=== PATIENT | female | born 1960 | race Caucasian/White ===

== ENCOUNTER → 2018-01-21 01:41 | Outpatient (CLI) | payer MEDICARE, MEDICAID, SELFPAY ==
--- NOTE | 2018-01-21 14:16 | MERGE_ITS ---
*[facility]* *[facility]* [address] [place] [address] Date of study: 01/21/2018 Transthoracic Echocardiography M-mode, complete 2D, complete spectral Doppler, and color Doppler *STUDY CONCLUSIONS* Summary: 1. Left ventricle: Systolic function was hyperdynamic. The estimated ejection fraction was 65-70%. Diastolic parameters were normal. There was no evidence of elevated ventricular filling pressure by Doppler parameters. 2. Mitral valve: There was mild regurgitation. 3. Right ventricle: The cavity size was normal. Wall thickness was normal. Systolic function was normal. 4. Atrial septum: No defect or patent foramen ovale was identified. 5. Pulmonary arteries: Pulmonary systolic pressure was in the range of 20mm Hg to 30mm Hg. 6. Inferior vena cava: The vessel was patent and normal in size. The respirophasic diameter changes were in the normal range (greater than or equal to 50%), consistent with normal central venous pressure. *PATIENT PRESENTATION* Height: 152.4cm ((60in) ) S/D Pressure: 99 / 60 Weight: 71.7kg ((157.7lb) ) BSA: 1.77m^2 Test start time: 02:34 PM. Test stop time: 03:28 PM. PERFORMING Unknown PERFORMING [facility] RT Elen (Stephan)(CT), [facility] ORDERING Heather Wolfe REFERRING Heather Wolfe *PROCEDURE DATA* Procedure information: The patient was identified by two identifiers. This study was interpreted by [facility]. Pertinent images and digital data are archived for permanent storage and are available for subsequent review. No prior study was available for comparison. Study status: Routine. Transthoracic echocardiography. M-mode, complete 2D, complete spectral Doppler, and color Doppler. A Transthoracic Echocardiogram was performed. Scanning was performed from the parasternal, apical, subcostal, and suprasternal notch acoustic windows. Images were obtained using an [id number] cardiac ultrasound machine. Image quality was adequate. Study completion: The patient tolerated the procedure well. History: PMH: Syncope and collapse. HTN. *CARDIAC ANATOMY* Left ventricle: Systolic function was hyperdynamic. The estimated ejection fraction was 65-70%. The tissue Doppler parameters were normal. Diastolic parameters were normal. There was no evidence of elevated ventricular filling pressure by Doppler parameters. Aortic valve: Trileaflet. Doppler: There was no stenosis. There was no regurgitation. VTI ratio of LVOT to aortic valve: 0.93. Valve area (VTI): 2.7cm^2. Indexed valve area (VTI): 1.5cm^2/m^2. Peak velocity ratio of LVOT to aortic valve: 0.83. Valve area (Vmax): 2.4cm^2. Indexed valve area (Vmax): 1.4cm^2/m^2. Mean velocity ratio of LVOT to aortic valve: 0.91. Valve area (Vmean): 2.6cm^2. Indexed valve area (Vmean): 1.5cm^2/m^2. Mean gradient (S): 4.5mm Hg. Peak gradient (S): 9.2mm Hg. Aorta: Aortic root: The aortic root was normal in size. Ascending aorta: The ascending aorta was normal in size. Mitral valve: Doppler: There was no evidence for stenosis. There was mild regurgitation. Valve area by pressure half-time: 3.8cm^2. Indexed valve area by pressure half-time: 2.2cm^2/m^2. Peak gradient (D): 3.3mm Hg. Left atrium: The atrium was normal in size. Atrial septum: No defect or patent foramen ovale was identified. Right ventricle: The cavity size was normal. Wall thickness was normal. Systolic function was normal. Pulmonic valve: Doppler: There was no evidence for stenosis. There was no significant regurgitation. Tricuspid valve: Doppler: There was mild regurgitation. Pulmonary artery: Poorly visualized. Pulmonary systolic pressure was in the range of 20mm Hg to 30mm Hg. Right atrium: The atrium was normal in size. Pericardium: There was no pericardial effusion. Systemic veins: Inferior vena cava: Well visualized. The vessel was patent and normal in size. The respirophasic diameter changes were in the normal range (greater than or equal to 50%), consistent with normal central venous pressure. Baseline ECG: Normal sinus rhythm. Measurements Left ventricle Value Reference LV ID, ED, PLAX 4.1 cm 3.5 - 6.0 LV ID, ES, PLAX 2.4 cm 2.1 - 4.0 LV PW thickness, ED, PLAX 0.9 cm LV end-diastolic volume, 1-p A2C 33 ml LV ejection fraction, 1-p A2C 71 % LV end-diastolic volume, 1-p A4C 38 ml LV ejection fraction, 1-p A4C 67 % LV e', lateral 0.112 m/sec LV E/e', lateral 8 LV e', medial 0.086 m/sec LV E/e', medial 11 LV e', average 0.099 m/sec LV E/e', average 9 Ventricular septum Value Reference IVS thickness, ED, PLAX 1.0 cm LVOT Value Reference LVOT ID, A-P 1.9 cm LVOT area 2.9 cm^2 LVOT peak velocity, S 1.27 m/sec LVOT mean velocity, S 0.92 m/sec LVOT VTI, S 25.9 cm LVOT peak gradient, S 6.4 mm Hg LVOT mean gradient, S 3.7 mm Hg Stroke volume (SV), LVOT DP 75 ml Stroke index (SV/bsa), LVOT DP 42 ml/m^2 Aortic valve Value Reference Aortic valve peak velocity, S 1.5 m/sec Aortic valve mean velocity, S 1.01 m/sec Aortic valve VTI, S 27.8 cm Aortic mean gradient, S 4.5 mm Hg Aortic peak gradient, S 9.2 mm Hg VTI ratio, LVOT/AV 0.93 Aortic valve area, VTI 2.7 cm^2 Velocity ratio, peak, LVOT/AV 0.83 Aortic valve area, peak velocity 2.4 cm^2 Velocity ratio, mean, LVOT/AV 0.91 Aortic valve area, mean velocity 2.6 cm^2 Aortic valve area/bsa, mean velocity 1.5 cm^2/m^2 Aorta Value Reference Aortic root ID, ED 3.0 cm Ascending aorta ID, A-P, S 2.9 cm RVOT Value Reference RVOT VTI, S 21.1 cm Left atrium Value Reference LA ID, A-P, ES 3.3 cm LA ID/bsa, A-P 1.8 cm/m^2 <=2.2 LA area, ES, A4C 14.6 cm^2 8.8 - 23.4 LA volume/bsa, ES, 1-p A4C 23 ml/m^2 LA/aortic root ratio 1.09 Mitral valve Value Reference Mitral E-wave peak velocity 0.91 m/sec Mitral A-wave peak velocity 0.88 m/sec Mitral deceleration time 198 ms 150 - 230 Mitral pressure half-time 57 ms Mitral peak gradient, D 3.3 mm Hg Mitral E/A ratio, peak 1.03 Mitral valve area, PHT, DP 3.8 cm^2 Pulmonary veins Value Reference Pulmonary vein peak velocity, S 0.68 m/sec Pulmonary vein peak velocity, D 0.68 m/sec Pulmonary vein velocity ratio, peak, 1.01 S/D Pulmonary vein A-wave reversal peak 0.41 m/sec velocity Tricuspid valve Value Reference Tricuspid regurg peak velocity 2.4 m/sec Tricuspid peak RV-RA gradient 23.9 mm Hg Right atrium Value Reference RA area, ES, A4C 11.4 cm^2 8.3 - 19.5 Legend: (L) and (H) mayelin values outside specified reference range. I have personally reviewed the images and have reviewed and edited the reported findings. Electronically signed by Yifan العراقي MD 01/21/2018 16:41
== END ==
PROVIDERS: PCP Nurse Practitioner; Visit Provider Nurse Practitioner
DX: R55 Syncope and collapse (principal); I10 Essential (primary) hypertension; I05.1 Rheumatic mitral insufficiency
CPT/HCPCS: 93306

== ENCOUNTER → 2018-01-23 00:15 | Outpatient (CLI) | payer MEDICARE, MEDICAID, SELFPAY ==
--- NOTE | 2018-01-23 09:30 | MERGEMPI_ITS ---
*[facility]* [address] [place] [address] Myocardial Perfusion Imaging - SPECT Regadenoson Date of study: 01/23/2018 (Report amended ) *PATIENT PRESENTATION* Height: 152.4cm (60in) Blood Pressure: Weight: 72.7kg (160lb) BSA: 1.78m^2 Referring physician: Yifan العراقي MD Ordering physician: Heather Wolfe Impressions: - Study suggests small myocardial ischemia, in the territory of the right coronary or left anterior descending arteries. - Low risk of cardiac events. Summary: 1. Myocardial perfusion imaging: There is a small sized, mildly intense, fully reversible defect involving the apical inferior and apical wall(s). This suggests small ischemia in the distribution of right coronary or left anterior descending artery. 2. The calculated left ventricular ejection fraction after stress: 70%. LV global systolic function is normal. No left ventricular regional motion abnormality. 3. Stress ECG conclusions: The stress ECG is negative. Recommendations: Medical management and risk factor modification is recommended. History: REASON FOR VISIT: PATIENT REPORTS INTERMITTENT DIZZINESS AND RECENT SHARP CHEST DISCOMFORT WITH RADIATION TO LEFT ARM. NO ASSOCIATED SYMPTOMS WERE REPORTED. CHEST DISCOMFORT OCCURED AT REST, LASTED ABOUT TEN MINUTES, AND RESOLVED WITHOUT INTERVENTION. SHE ALSO REPORTS PASSING OUT 8 TIMES WITHOUT WARNING. HAS HAD NO INTERVENTION REGARDING THIS PROBLEM. PAST MEDICAL HISTORY: RESTLESS LEG SYNDROME, DIVERTICULOSIS, FIBROMYALGIA, DEPRESSION, ANXIETY, HYPERTENSION, HYPERCHOLESTEROLEMIA, GASTROESOPHAGEAL REFLUX DISEASE, DEGENERATIVE JOINT DISEASE, CHRONIC KNEE PAIN. FAMILY HISTORY: MOTHER (HYPERTENSION AND HYPERLIPIDEMIA). SMOKING STATUS: FORMER SMOKER, QUIT IN 2013. EXERCISE ROUTINE: NONE. Risk factors: Cholesterol: 156mg/dl. HDL: 54mg/dl. LDL: 91mg/dl. Triglycerides: 129mg/dl. ALLERGIES: ACETAMINOPHEN, ADHESIVE, ASPIRIN, AZITHROMYCIN, CODEINE, LAMOTRIGINE, MEPERIDINE HCL, MORPHINE, OXYCODONE HCL, ROFECOXIB. MEDICATIONS: AMLODIPINE BESYLATE 2.5MG, DAILY. ASCORBIC ACID 100MG, DAILY. CLONAZEPAM 0.5MG PRN & 1MG HS. CYANOCOBALAMIN 1000MG, DAILY. CYCLOBENZAPRINE HCL 10MG, PRN. DIPHENHYDRAMINE HCL 25MG, BID. DULOXETINE HCL 60MG, BID. GARLIC 1 TAB, DAILY. HYDROCODONE/IBUPROFEN 10MG-200MG, PRN. LISINOPRIL 40MG, DAILY. LOVASTATIN 80MG DAILY. MIRTAZAPINE 15MG, DAILY. OMEGA-3/DHA/EPA/FISH OIL 1 TAB, DAILY. OMEPRAZOLE 40MG DAILY. PRAZOSIN HCL 1MG, HS. PYRIDOXINE HCL 100MG, DAILY. THIAMINE MONONITRATE 100MG, DAILY. VITAMIN D 1000UNITS, DAILY. Imaging Technique: Protocol: Regadenoson. Acquisition: Gated SPECT; 1 day - rest/stress. The patient was imaged in the supine position. Attenuation correction used. Isotope administration: - Rest. Tc[99m]-sestamibi. Dose: 10.2mCi. Injection time: 11:45 AM. Injection to stress time: 00:45. - Stress. Tc[99m]-sestamibi. Dose: 31.5mCi. Injection time: 01:00 PM. 1-2 min before end of exercise Baseline ECG: LAST EKG 01/03/18- REPORTED ATRIAL RHYTHM, POOR QUALITY TRACING. TODAY'S EKG-SINUS RHYTHM, HR 72. Normal ECG. Stress protocol: +--------+--+ + + !Stage !HR!BP (mmHg) !Comments ! +--------+--+ + + !Baseline!72!142/88 (106)! ! +--------+--+ + + !1 min !96!138/80 (99) !Inject Regadenoson.! +--------+--+ + + !3 min !92!140/85 (103)! ! +--------+--+ + + !6 min !85!140/78 (99) ! ! +--------+--+ + + * Stress results: The rate-pressure product for the peak heart rate and blood pressure was 98363te Hg/min. Stress ECG: LEXISCAN TESTING ENDED IN 6 MINS VS RETURNED TO BASELINE. MAX HR WAS 99, WITH A NORMAL BLOOD PRESSURE RESPONSE. ECTOPY: NONE SEEN, ANGINA: 5/10 LEFT SIDED CHEST PRESSURE REPORTED AT 2 MISN, 30 SECS OF TESTING. THIS DECREASED TO 3/10 IN MINUTE 3, AND 0/10 IN MINUTE 5. ISCHEMIA: NO ISCHEMIC CHANGES NOTED. The stress ECG is negative. Myocardial perfusion: Imaging information: gated. Left ventricular size is normal. There is a small sized, mildly intense, fully reversible defect involving the apical inferior and apical wall(s). This suggests small ischemia in the distribution of right coronary or left anterior descending artery. Ventricular Function (Wall Motion): The calculated left ventricular ejection fraction after stress: 70%. LV global systolic function is normal. No left ventricular regional motion abnormality. Study data: John Mathew MD supervised and was readily available during the procedure. This study was interpreted by [facility]. Study status: Routine. Consent: The risks, benefits, and alternatives to the procedure were explained to the patient and informed consent was obtained. Procedure: Initial setup. A baseline ECG was recorded. Surface ECG leads and manual cuff blood pressure measurements were monitored. Heart sounds: Normal. Lung sounds: Normal. Regadenoson stress test. Stress testing was performed, with regadenoson by intravenous bolus, for a total dose of 0.4mgover 10.00sec, followed by a 5ml saline flush. The infusion was terminated due to per protocol. The patient was unable to exercise due to deconditioning and or frailty. Study completion: All catheters inserted during the procedure were removed. The patient tolerated the procedure well and was discharged from the lab. Discharge: The patient left the laboratory in stable condition. Birthdate: Patient birthdate: 1960. Sex: Gender: female. Study date: Study date: 01/23/2018. Study time: 09:30 AM. Signature Documentation: - The imaging portion of this study was interpreted by Nuclear Maintenance Specialist John Mathew MD. - The imaging portion of this study was interpreted by Nuclear Radiologist Victor Hugo Gold MD. - The Stress ECG portion of this study was interpreted by John Mathew MD. Electronically signed by John Mathew 01/23/2018 14:11
[2018-01-23] MEDS: Regadenoson 0.4 MG/5 ML SYR IVP (13:14)
== END ==
PROVIDERS: PCP Nurse Practitioner; Visit Provider Nurse Practitioner
DX: R07.89 Other chest pain (principal); R42 Dizziness and giddiness; I10 Essential (primary) hypertension; E78.5 Hyperlipidemia, unspecified; I25.9 Chronic ischemic heart disease, unspecified; Z87.891 Personal history of nicotine dependence
CPT/HCPCS: 78452; 93016 ×2; 93017; 93018 ×2; J2785

== ENCOUNTER → 2018-01-28 09:30 | Outpatient (CLI) | payer MEDICARE, MEDICAID, SELFPAY | PROVIDERS: PCP Nurse Practitioner; Visit Provider Internal Medicine Interventional Cardiology | DX: R55 Syncope and collapse (principal); I10 Essential (primary) hypertension | CPT/HCPCS: 0298T ==

== ENCOUNTER → 2018-01-30 11:47 | Outpatient (CLI) | payer MEDICARE, MEDICAID, SELFPAY ==
[2018-01-30 12:31] LABS: Abs Immature Grans 0.01 k/cumm (0.0-0.09); Absolute Basophil Count 0.02 k/cumm (0.0-0.2); Absolute Eosinophil Count 0.22 k/cumm (0.0-0.7); Absolute Monocyte Count 0.38 k/cumm (0.11-0.7); Absolute Neutrophil Count 4.93 k/cumm (1.2-6.7); Basophils % 0.2; Eosinophils % 2.6; HGB 13.8 g/dL (12.0-15.5); Immature Grans % 0.1; Lymphocytes % 34.3; Mean Corp. HGB Concentration 32.9 g/dL (32.0-36.0); Mean Corpuscular Hemoglobin 29.6 pg (27.0-33.0); Mean Corpuscular Volume 89.9 fL (80-95); Mean Platelet Volume 10.2 fL (8.0-11.0); Monocytes % 4.5; Neutrophils % 58.3; Platelet Count 216 x1000/uL (130-400); RBC 4.67 m/cumm (4.00-5.20); RBC Distribution Width 16.2 % (11.7-14.6); White Blood Cell Count 8.46 k/cumm (4.4-10.8)
[2018-01-30 13:51] LABS: ALT 32 U/L (12-78); AST 19 U/L (15-37); Albumin 3.3 g/dL (3.4-5.0); Alkaline Phosphatase 90 U/L (46-116); Anion Gap 9.7 mmol/L (3-11); BUN 17 mg/dL (7-18); Bilirubin, Total 0.2 mg/dL (0.2-1.0); CO2 24.3 mmol/L (21.0-32.0); CREATININE 0.92 mg/dL (0.55-1.02); Calcium 8.6 mg/dL (8.5-10.1); Chloride 102 mmol/L (98-107); Cholesterol 155 mg/dL (50-200); Glucose 95 mg/dL (70-100); HDL Cholesterol 44 mg/dL (40-60); LDL CHOLESTEROL 100 mg/dL (<100); Magnesium 1.7 mg/dL (1.8-2.4); Potassium 4.3 mmol/L (3.5-5.1); Sodium 136 mmol/L (136-145); TSH (W/Ref FT4) 2.72 uIU/mL (0.358-3.74); Triglyceride 95 mg/dL (30-150)
[2018-01-31 11:30] LABS: Rheumatoid Factor <8 IU/mL (<12.5)
[2018-01-31 14:40] LABS: Lyme Ab w Rflx to Lyme Confirm Negative
[2018-01-31 15:36] LABS: ANA Interpretation Negative (NEGAT)
[2018-01-31 21:39] LABS: Anaplasma phagocytophilum Negative (Negative); B. miyamotoi PCR Negative (Negative); Babesia divergens/MO-1 Negative (Negative); Babesia duncani Negative (Negative); Babesia microti Negative (Negative); Ehrlichia chaffeensis Negative (Negative); Ehrlichia ewingii/canis Negative (Negative); Ehrlichia muris eauclairensis Negative (Negative)
== END ==
PROVIDERS: PCP Nurse Practitioner; Visit Provider Nurse Practitioner
DX: I10 Essential (primary) hypertension (principal); R55 Syncope and collapse; M25.50 Pain in unspecified joint; M25.60 Stiffness of unspecified joint, not elsewhere classified; R25.2 Cramp and spasm
CPT/HCPCS: 36415; 80053; 80061; 83721; 83735; 84443; 85025; 86038; 86431; 86618; 87798

== ENCOUNTER 2018-02-28 16:31 | Outpatient (REF) | payer MEDICARE, MEDICAID, SELFPAY ==
[2018-03-04 14:56] LABS: Amphetamine Negative ng/mL (Cutoff: 25); MDA (Ecstasy Metabolite) Negative ng/mL (Cutoff: 25); Methamphetamine Negative ng/mL (Cutoff: 25); Phentermine Negative ng/mL (Cutoff: 25); Pseudoephedrine/Ephedrine Negative ng/mL (Cutoff: 25)
== END 2018-02-28 16:51 ==
LOC: LBN 16:31
PROVIDERS: PCP Nurse Practitioner; Visit Provider Nurse Practitioner
DX: R55 Syncope and collapse (principal); G89.4 Chronic pain syndrome; M79.7 Fibromyalgia
CPT/HCPCS: 80324

== ENCOUNTER 2018-03-06 13:08 | Outpatient (CLI) | payer MEDICARE, MEDICAID, SELFPAY ==
--- NOTE | 2018-03-06 13:11 | DI.CT_ITS ---
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 There is no evidence of an intra or extra axial hemorrhage, edema or mass and nothing to suggest a territorial infarct. The mcgregor/white matter differentiation is well maintained. The ventricles are unremarkable. There is nothing to suggest a skull fracture. The paranasal sinuses are intact. There is no mastoid effusion. SUMMARY: No acute abnormality is demonstrated. The noncontrast enhanced examination is within normal limits. If there is further strong specific clinical question regarding the status of this patient then correlation with an MRI could be considered.
== END 2018-03-06 13:28 ==
PROVIDERS: PCP Nurse Practitioner; Visit Provider Nurse Practitioner
DX: R55 Syncope and collapse (principal); Z86.73 Personal history of transient ischemic attack (TIA), and cerebral infarction without residual deficits
CPT/HCPCS: 70450

== ENCOUNTER 2018-03-18 14:17 | Outpatient (CLI) | payer MEDICARE, MEDICAID, SELFPAY ==
[2018-03-18 15:55] LABS: D-Dimer 1206 ng/mlFEU (<500)
== END 2018-03-18 14:37 ==
PROVIDERS: PCP Nurse Practitioner; Visit Provider Nurse Practitioner
DX: R79.89 Other specified abnormal findings of blood chemistry (principal)
CPT/HCPCS: 36415; 85379

== ENCOUNTER → 2018-03-21 09:38 | Outpatient (BNVA) | payer MEDICARE, MEDICAID, SELFPAY | PROVIDERS: Visit Provider Internal Medicine Cardiovascular Disease | DX: I10 Essential (primary) hypertension (principal); R55 Syncope and collapse; R07.9 Chest pain, unspecified; R94.39 Abnormal result of other cardiovascular function study; R60.0 Localized edema | CPT/HCPCS: 99204; 99215 ==

== ENCOUNTER → 2018-04-02 12:59 | Outpatient (BNVA) | payer MEDICARE, MEDICAID, SELFPAY | PROVIDERS: PCP Nurse Practitioner; Visit Provider Psychiatry & Neurology Neurology | DX: R55 Syncope and collapse (principal); I10 Essential (primary) hypertension | CPT/HCPCS: 99204; 99215 ==

== ENCOUNTER 2018-09-24 19:42 | Outpatient (REF) | payer MEDICARE, MEDICAID, SELFPAY ==
[2018-09-27 09:53] LABS: Amphetamine Negative ng/mL (Cutoff: 25); Amphetamines Interpretation Negative.; MDA (Ecstasy Metabolite) Negative ng/mL (Cutoff: 25); MDMA (Ecstasy) Negative ng/mL (Cutoff: 25); Methamphetamine Negative ng/mL (Cutoff: 25); Phentermine Negative ng/mL (Cutoff: 25); Pseudoephedrine/Ephedrine Negative ng/mL (Cutoff: 25)
[2018-09-28 13:17] LABS: Codeine Negative ng/mL (Cutoff: 25); Dihydrocodeine 213 ng/mL (Cutoff: 25); Hydrocodone 3799 ng/mL (Cutoff: 25); Hydromorphone 325 ng/mL (Cutoff: 25); Morphine Negative ng/mL (Cutoff: 25); Naloxone Negative ng/mL (Cutoff: 25); Norhydrocodone 5601 ng/mL (Cutoff: 25); Noroxycodone Negative ng/mL (Cutoff: 25); Noroxymorphone Negative ng/mL (Cutoff: 25); Opiates Interpretation Positive.
[2018-10-01 14:54] LABS: Propoxyphene (Darvon) Negative
== END 2018-09-24 20:02 ==
LOC: LBN 19:42
PROVIDERS: PCP Nurse Practitioner; Visit Provider Nurse Practitioner
DX: F11.90 Opioid use, unspecified, uncomplicated (principal); G89.4 Chronic pain syndrome; R89.2 Abnormal level of other drugs, medicaments and biological substances in specimens from other organs, systems and tissues
CPT/HCPCS: 80324; 80361; 82542

== ENCOUNTER 2018-09-25 00:29 | Outpatient (CLI) | payer MEDICARE, MEDICAID, SELFPAY ==
--- NOTE | 2018-09-25 16:18 | DI.MAMMO_ITS ---
SYMPTOM/DIAGNOSIS: SCREENING, Z12.31, FAMILY H/O BREAST CA MAMMOGRAMS: Mammograms were interpreted according to the usual protocol including computer analysis with CAD system, tomosynthesis and C view imaging. The breasts are of moderate density with fairly symmetrical distribution of fibroglandular tissue. No dominant mass or clumped microcalcification is identified in either breast. Current examination is compared with previous examinations including 01/2015 and there has been no gross interval change in appearance in comparison with the previous studies. CONCLUSION: No specific evidence of malignancy at this time. Routine screening examinations are suggested at yearly intervals due to the family history of breast carcinoma. Category 1. Breast density,category B. MQSA ASSESSMENT OF FINDINGS: Negative. Category 1. Patient will receive a letter notifying them of these results. BI-RADS category B. There are scattered areas of fibroglandular density.
== END 2018-09-25 00:49 ==
PROVIDERS: PCP Nurse Practitioner; Visit Provider Nurse Practitioner
DX: Z12.31 Encounter for screening mammogram for malignant neoplasm of breast (principal); Z80.3 Family history of malignant neoplasm of breast
CPT/HCPCS: 77063; 77067

== ENCOUNTER 2018-12-17 18:25 | Outpatient (REF) | payer MEDICARE, MEDICAID, SELFPAY ==
[2018-12-20 09:25] LABS: Codeine Negative ng/mL (Cutoff: 25); Dihydrocodeine 390 ng/mL (Cutoff: 25); Hydrocodone 2131 ng/mL (Cutoff: 25); Hydromorphone 329 ng/mL (Cutoff: 25); Morphine Negative ng/mL (Cutoff: 25); Naloxone Negative ng/mL (Cutoff: 25); Norhydrocodone 3449 ng/mL (Cutoff: 25); Noroxycodone Negative ng/mL (Cutoff: 25); Noroxymorphone Negative ng/mL (Cutoff: 25); Opiates Interpretation Positive.
== END 2018-12-17 18:45 ==
LOC: LBN 18:25
PROVIDERS: PCP Nurse Practitioner; Visit Provider Nurse Practitioner
DX: G89.4 Chronic pain syndrome (principal); R82.90 Unspecified abnormal findings in urine; F11.90 Opioid use, unspecified, uncomplicated
CPT/HCPCS: 80361

== ENCOUNTER 2020-12-08 01:43 | Outpatient (CLI) | payer MEDICARE, MEDICAID, SELFPAY ==
--- NOTE | 2020-12-08 | DI.MAMMO_ITS ---
Exam(s) MAMMO SCREENING EXAM: MAMMO SCREENING CLINICAL HISTORY: SCREENING, Z12.39. TECHNIQUE: Bilateral full field digital CC and MLO mammographic images were obtained with 3D tomosyn thesis and utilizing computer aided detection (CAD). COMPARISON: Prior mammograms dating back to 2012, the most recent being September 2018. FINDINGS: There are no CAD designations There are no new spiculated masses nor malignant appearing microcalcification groups. There is no significant architectural distortion nor skin thickening-retraction. IMPRESSION: No radiographic evidence of malignancy. BI-RADS Category 1 - Negative Breast Density - Category B - Scattered areas of fibroglandular density Breast density Category C or D implies that the patient has dense breast tissue. Dense breast tissue can make it harder to find cancer on a mammogram. Dense breast tissue is also associated with an incr eased risk of breast cancer. This information about the result of the mammogram report was provided to the patient to raise their awareness. Use this report when you speak with the patient about their risks for breast cancer, which includes their family history. At that time, you may recommend additional screening tests (Ultrasoun d or MRI) as these tests may add significant information. A negative radiographic report should not delay biopsy if a dominant or clinically suspicious mass is present. Up to ten percent of cancers are not identified on mammography. A negative report may reinforce clinical impression. Adenosis and dense breasts may obscure an underlying neoplasm. False positive reports average 6 to 10%. Patient will receive a letter notifying them of these results.
== END 2020-12-08 02:03 ==
PROVIDERS: PCP Nurse Practitioner; Visit Provider Nurse Practitioner
DX: Z12.31 Encounter for screening mammogram for malignant neoplasm of breast (principal); R92.8 Other abnormal and inconclusive findings on diagnostic imaging of breast
CPT/HCPCS: 77063; 77067

== ENCOUNTER 2021-08-01 08:44 | Outpatient (CLI) | payer MEDICARE, MEDICAID, SELFPAY | END 2021-08-01 08:45 | disposition home or self-care (01) | LOC: DI.CARD 08:49 | PROVIDERS: PCP Nurse Practitioner; Visit Provider Internal Medicine Cardiovascular Disease | DX: R69 Illness, unspecified (principal) | CPT/HCPCS: 93010 ==

== ENCOUNTER 2021-09-06 11:18 | Outpatient (CLI) | payer MEDICARE, MEDICAID, SELFPAY ==
--- NOTE | 2021-09-06 11:15 | RT.EKG_ITS ---
APPROVED REPORT Exam: Resting ECG Reason for Exam: NPW Baseline needed Patient Location: O HR:86 bpm ECG Measurements Heart Rate 86 AXIS NV 125 P 58 QRSd 80 QRS 29 QT 346 T 46 QTc 414 Conclusion Sinus rhythm...normal P axis, V-rate 50- 99 Low voltage, precordial leads...precordial leads <1.0mV Otherwise normal
== END 2021-09-06 11:19 | disposition home or self-care (01) ==
LOC: DI.CARD 11:23
PROVIDERS: PCP Nurse Practitioner; Referring Provider Nurse Practitioner; Visit Provider Internal Medicine Cardiovascular Disease
DX: I10 Essential (primary) hypertension (principal)
CPT/HCPCS: 93010

== ENCOUNTER → 2021-09-06 11:18 | Outpatient (BNVA) | payer MEDICARE, MEDICAID, SELFPAY | PROVIDERS: PCP Nurse Practitioner; Referring Provider Nurse Practitioner; Visit Provider Internal Medicine Cardiovascular Disease | DX: M17.0 Bilateral primary osteoarthritis of knee (principal); I10 Essential (primary) hypertension | CPT/HCPCS: 93005; 99203 ==

== ENCOUNTER 2021-09-27 14:17 | Outpatient (CLI) | payer MEDICARE, MEDICAID, SELFPAY | END 2021-09-27 14:18 | disposition home or self-care (01) | LOC: DI.KIM 14:18 | PROVIDERS: PCP Nurse Practitioner; Visit Provider Nurse Practitioner | DX: R69 Illness, unspecified (principal) | CPT/HCPCS: 93010 ==

== ENCOUNTER 2022-11-02 13:00 | Outpatient (REF) | payer MEDICARE, MEDICAID, SELFPAY ==
[2022-11-02 14:59] LABS: HCT 43.8 % (36.0-46.0); HGB 14.5 g/dL (11.2-15.7); MCH 28.2 pg (27.0-33.0); MCHC 33.1 % (32.0-36.0); MCV 85 fL (80-95); MPV 10.7 fL (8.0-11.0); Platelet Count 206 10^3/uL (130-400); RBC 5.14 10^6/uL (3.93-5.22); RDW 15.8 % (11.7-14.6); RDW-SD 48.7 fL; WBC 9.32 10^3/uL (4.4-10.8)
[2022-11-02 15:30] LABS: ALT 73 U/L (14-59); AST 54 U/L (15-37); Albumin 3.6 g/dL (3.4-5.0); Alkaline Phosphatase 95 U/L (46-116); Anion Gap 7.5 mmol/L (3-11); BUN 16 mg/dL (7-18); Bilirubin, Total 0.3 mg/dL (0.2-1.0); CO2 27.5 mmol/L (21.0-32.0); CREATININE 0.9 mg/dL (0.55-1.02); Calcium 9.3 mg/dL (8.5-10.1); Calculated LDL 121 mg/dL (<100); Chloride 105 mmol/L (98-107); Cholesterol 200 mg/dL (<200); Estimated GFR 72.28 (mL/min/1.73m2); Glucose 123 mg/dL (74-106); HDL Cholesterol 47 mg/dL (40-60); Potassium 4.1 mmol/L (3.5-5.1); Sodium 140 mmol/L (136-145); Total Protein 7.4 g/dL (6.4-8.2); Triglyceride 162 mg/dL (<150)
[2022-11-02 15:53] LABS: COMMENT (LAB VIEW ONLY) 335.82 mg/dL; Microalb ug/mg Crea 14.5 ug/mg Cr
== END 2022-11-02 13:01 | disposition home or self-care (01) ==
LOC: LBN 13:00
PROVIDERS: PCP Nurse Practitioner; Visit Provider Nurse Practitioner
DX: I10 Essential (primary) hypertension (principal); E78.5 Hyperlipidemia, unspecified; E11.9 Type 2 diabetes mellitus without complications
CPT/HCPCS: 80053; 80061; 85027; 82043; 82570

== ENCOUNTER → 2023-10-18 00:09 | Outpatient (CLI) | payer MEDICARE, MEDICAID, SELFPAY ==
--- NOTE | 2023-10-18 | DI.CTLCSR_ITS ---
Exam(s) CT CHEST LUNG CANCER SCREEN EXAM: CT CHEST LUNG CANCER SCREEN CLINICAL HISTORY: F17.210 Nicotine dependence. Screening for lung cancer TECHNIQUE: Imaging Protocol: Axial computed tomography images with coronal and sagittal reformatted images were created and reviewed COMPARISON: CT RENAL COLIC WO CONTRAST from 07/03/2007 CT ABD PELVIS WITH CONTRAST from 07/10/2008 CT RENAL COLIC WO CONTRAST from 06/15/2010 FINDINGS: Tracheobronchial tree: Patent where visualized. Pulmonary parenchyma: No consolidation or dominant measurable mass. No architectural distortion. Lung Nodules: There is a 3 mm nodule in the right lower lobe (series 3, image 273). Mediastinum and Roro: No dominant adenopathy or fluid collection. The esophagus is unremarkable. Thyroid gland: Unremarkable. Lymph nodes: Unremarkable. Pleura: No effusion or pneumothorax. Heart: The heart is not dilated. Coronary artery calcifications and/or stents are present. No perica rdial effusion. Aorta: Thoracic aorta non-dilated.Atherosclerotic calcifications are present. Upper abdomen: Right nephrolithiasis. Soft Tissues: Unremarkable. Bones: Within normal limits. IMPRESSION: 3 mm right lower lobe pulmonary nodule. Lung RADS Cat 2 - Benign Appearance / Behavior: Nodules with a very low likelihood of becoming a clin ically active cancer due to size or lack of growth Lung-RADS 1.0 CATEGORIES: Category 0 - Prior chest CT exam(s) being located for comparison. Category 1 - Annual screening in 12 months. No nodules or definitely benign nodules. Category 2 - Annual screening in 12 months. Benign appearance. Nodules with low likelihood of becomin g active cancer. Category 3 - 6-month follow-up. Probably benign. Short-term follow-up suggested. Nodules with low lik elihood of becoming active cancer. Category 4A - 3-month follow-up and CT/PET if >8 mm in size. Suspicious finding. Findings which requi re additional testing. Category 4B - Findings which require additional testing and tissue sampling. Suspicious finding. Category 4X - Category 3 or 4 nodules with additional features or imaging findings that increases the suspicion of malignancy. Modifier S- Potentially clinically significant finding. (Non lung cancer) RADIATION DOSE DELIVERED: 72.49mGy.cm Total DLP 72.49mGy.cmTotal DLP DATA REPOSITORY: All CT scans at this facility are submitted to the National Radiology Data Registry (NRDR) Dose Index Registry (DIR) with the [employer] ([employer]). RADIATION OPTIMIZATION: All CT scans at this facility use at least one of these dose optimization te chniques: automated exposure control; mA and/or kV adjustment per patient size (includes targeted exa ms where dose is matched to clinical indication); or iterative reconstruction.
== END ==
PROVIDERS: PCP Nurse Practitioner; Visit Provider Nurse Practitioner
DX: Z12.2 Encounter for screening for malignant neoplasm of respiratory organs (principal); F17.210 Nicotine dependence, cigarettes, uncomplicated; R91.1 Solitary pulmonary nodule
CPT/HCPCS: 71271

== ENCOUNTER 2024-02-07 02:27 | Outpatient (CLI) | payer MEDICARE, MEDICAID, SELFPAY ==
--- NOTE | 2024-02-07 09:00 | DI.MAMMO_ITS ---
Exam(s) MAMMO SCREENING EXAM: MAMMO SCREENING CLINICAL HISTORY: screening, Z12.39 TECHNIQUE: Mammograms were interpreted according to the usual protocol including computer analysis w [employer] CAD system, tomosynthesis and C-view imaging. COMPARISON: 2014 through 2020 FINDINGS: The breasts are composed of mainly fatty density , Breast Density category A. No suspicious masses or suspicious microcalcifications are seen. No skin thickening or abnormal axillary lymph nodes are seen. There has been no significant change from prior exams. IMPRESSION: BI-RADS Category 1, Negative mammogram Yearly screening mammography is recommended. Breast Density - Category A, fatty density. A negative radiographic report should not delay biopsy if a dominant or clinically suspicious mass is present. Up to ten percent of cancers are not identified on mammography. A negative report may reinforce clinical impression. Adenosis and dense breasts may obscure an underlying neoplasm. False positive reports average 6 to 10%. Patient will receive a letter notifying them of these results.
== END 2024-02-07 02:47 ==
LOC: DI 02:28
PROVIDERS: PCP Nurse Practitioner; Visit Provider Nurse Practitioner
DX: Z12.31 Encounter for screening mammogram for malignant neoplasm of breast (principal); Z78.0 Asymptomatic menopausal state
CPT/HCPCS: 77063; 77067

== ENCOUNTER 2024-02-07 15:56 | Outpatient (CLI) | payer MEDICARE, MEDICAID, SELFPAY ==
[2024-02-07 15:43] LABS: Abs Immature Grans 0.02 10^3/uL (0.0-0.06); Absolute Basophil Count 0.06 10^3/uL (0.0-0.2); Absolute Eosinophil Count 0.18 10^3/uL (0.0-0.7); Absolute Lymphocyte Count 3.29 10^3/uL (1.2-3.4); Absolute Neutrophil Count 6.28 10^3/uL (1.2-6.7); Basophils % 0.6 %; Eosinophils % 1.7 %; HCT 41.3 % (36.0-46.0); HGB 13.6 g/dL (11.2-15.7); Immature Grans % 0.2 %; Lymphocytes % 31.8 %; MCH 28.9 pg (27.0-33.0); MCHC 32.9 % (32.0-36.0); MCV 88 fL (80-95); MPV 10.2 fL (8.0-11.0); Monocytes % 4.8 %; Neutrophils % 60.9 %; Platelet Count 220 10^3/uL (130-400); RBC 4.71 10^6/uL (3.93-5.22); RDW 14.7 % (11.7-14.6); RDW-SD 47.9 fL; WBC 10.33 10^3/uL (4.4-10.8)
[2024-02-07 16:21] LABS: ALT 29 U/L (14-59); AST 18 U/L (15-37); Albumin 3.2 g/dL (3.4-5.0); Alkaline Phosphatase 84 U/L (46-116); Anion Gap 9.3 mmol/L (3-11); BUN 20 mg/dL (7-18); CO2 28.7 mmol/L (21.0-32.0); CREATININE 1.4 mg/dL (0.55-1.02); Calcium 9.4 mg/dL (8.5-10.1); Calculated LDL 140 mg/dL (<100); Chloride 104 mmol/L (98-107); Cholesterol 227 mg/dL (<200); Estimated GFR 42.27 (mL/min/1.73m2); Glucose 99 mg/dL (74-106); HDL Cholesterol 46 mg/dL (40-60); Potassium 3.8 mmol/L (3.5-5.1); Sodium 142 mmol/L (136-145); Total Protein 7.3 g/dL (6.4-8.2); Triglyceride 208 mg/dL (<150)
== END 2024-02-07 15:57 | disposition home or self-care (01) ==
LOC: LBO 15:56
PROVIDERS: PCP Nurse Practitioner; Visit Provider Nurse Practitioner
DX: I10 Essential (primary) hypertension (principal); E78.5 Hyperlipidemia, unspecified; E11.9 Type 2 diabetes mellitus without complications
CPT/HCPCS: 36415; 80053; 80061; 85025

== ENCOUNTER → 2024-06-19 14:59 | Outpatient (BNVA) | payer MEDICARE, MEDICAID, SELFPAY | PROVIDERS: PCP Nurse Practitioner; Referring Provider Nurse Practitioner; Visit Provider Physical Therapy Assistant | DX: Z12.11 Encounter for screening for malignant neoplasm of colon (principal); Z80.0 Family history of malignant neoplasm of digestive organs; Z86.0100 Personal history of colon polyps, unspecified; I10 Essential (primary) hypertension ==

== ENCOUNTER 2024-07-03 10:35 | Outpatient (CLI) | payer MEDICARE, MEDICAID, SELFPAY ==
[2024-07-03 10:05] LABS: Anion Gap 10.3 mmol/L (3-11); BUN 17 mg/dL (7-18); CO2 27.7 mmol/L (21.0-32.0); CREATININE 1.1 mg/dL (0.55-1.02); Calcium 9.8 mg/dL (8.5-10.1); Chloride 104 mmol/L (98-107); Estimated GFR 56.11 (mL/min/1.73m2); Glucose 111 mg/dL (74-106); Potassium 3.9 mmol/L (3.5-5.1); Sodium 142 mmol/L (136-145)
== END 2024-07-03 10:36 | disposition home or self-care (01) ==
LOC: LBO 10:35
PROVIDERS: PCP Nurse Practitioner; Visit Provider Nurse Practitioner
DX: R79.9 Abnormal finding of blood chemistry, unspecified (principal)
CPT/HCPCS: 36415; 80048

== ENCOUNTER 2024-07-07 07:10 | Day surgery (SDC) | payer MEDICARE, MEDICAID, SELFPAY ==
--- NOTE | 2024-07-06 18:12 | W.PM.DSUDISC ---
Date of service: 07/07/24 Discharge Plan Disposition Patient Disposition: Home Condition: Good Discharge Details Reason For Visit: screening colonoscopy Attending Provider: Dk Gloria Primary Care Provider: Heather Wolfe Home Meds and New Rx's Prescriptions: Continued duloxetine [Cymbalta] 60 mg capsule,delayed release(DR/EC) 60 mg PO BID Qty: 180 3RF cyclobenzaprine 10 mg tablet See Rx Instructions .ROUTE .COMPLEX Qty: 90 3RF Dose Instruction: take 1 tablet by mouth at bedtime if needed for muscle spasm CHRONIC PAIN Rx Instructions: take 1 tablet by mouth at bedtime if needed for muscle spasm CHRONIC PAIN omeprazole 40 mg capsule,delayed release(DR/EC) See Rx Instructions .ROUTE .COMPLEX Qty: 90 3RF Dose Instruction: take 1 capsule by mouth once daily Rx Instructions: take 1 capsule by mouth once daily potassium citrate 10 mEq (1,080 mg) tablet extended release 10 meq PO TID Qty: 270 3RF Rx Instructions: 02/06/19[facility] mg/dose (4 mg/3 mL) pen injector 1 mg subcut QWEEK Qty: 3 6RF diphenhydramine HCl [Benadryl Allergy] 25 mg tablet 25 mg PO BID Qty: 180 3RF varenicline tartrate [Chantix Continuing Month Box] 1 mg tablet 1 mg PO BID Qty: 60 3RF lovastatin 40 mg tablet See Rx Instructions .ROUTE .COMPLEX Qty: 180 3RF Dose Instruction: TAKE 2 TABLETS (80 MG) BY MOUTH DAILY TO REDUCE RISK OF CARDIOVASCULAR EVENTS, TO LOWER CHOLESTEROL Rx Instructions: TAKE 2 TABLETS (80 MG) BY MOUTH DAILY TO REDUCE RISK OF CARDIOVASCULAR EVENTS, TO LOWER CHOLESTEROL prazosin 2 mg capsule 4 mg PO QHS Qty: 90 0RF mupirocin 2 % ointment See Rx Instructions .ROUTE .COMPLEX Qty: 22 0RF Dose Instruction: APPLY 1 APPLICATION TOPICALLY TO GROIN RASH TWICE A DAY NEEDED Rx Instructions: APPLY 1 APPLICATION TOPICALLY TO GROIN RASH TWICE A DAY NEEDED ascorbic acid (vitamin C) 1,000 mg tablet 1,000 mg PO DAILY Qty: 90 3RF cholecalciferol (vitamin D3) 25 mcg (1,000 unit) tablet 2,000 unit PO DAILY Qty: 180 3RF cyanocobalamin (vitamin B-12) [Vitamin B-12] 1,000 mcg tablet 1,000 mcg PO DAILY Qty: 90 3RF omega 3-uil-wql-fish oil 300-1,000 mg capsule 1 cap PO DAILY Qty: 90 3RF pyridoxine (vitamin B6) 100 mg tablet See Rx Instructions .ROUTE .COMPLEX Qty: 90 3RF Dose Instruction: TAKE 1 TABLET BY MOUTH DAILY Rx Instructions: TAKE 1 TABLET BY MOUTH DAILY thiamine mononitrate (vit B1) 100 mg tablet 100 mg PO DAILY Qty: 90 3RF Discontinued bisacodyl [Dulcolax (bisacodyl)] 5 mg tablet,delayed release (DR/EC) 5 mg PO ONCE Qty: 4 0RF Rx Instructions: Take per colonoscopy instructions provided by ordering providers office polyethylene glycol 3350 17 gram/dose powder 17 g PO ONCE Qty: 238 0RF Rx Instructions: Take per colonoscopy instructions provided by ordering providers office Discharge Instructions Instructions: Colon polyps, Diverticulosis Additional Instructions: Josiane, it was a pleasure meeting you today, and I hope you are comfortable throughout the procedure. Everything went very smoothly. I did find and remove 1 polyp today. It is relatively small, nothing about it appears worrisome to the naked eye. This polyp we sent off for testing since polyps to come in different varieties, we use the information from that analysis to determine the timing of your next colonoscopy. Incidentally, does you already know, he also have diverticulosis. I have attached a little bit of information here about both colon and rectal polyps, as well as diverticulosis. If you need anything or have any questions, please do not hesitate to call, otherwise, we will be in touch once the polyp analysis is complete. 1. If tolerated, consume a soft, low fiber diet for 1-2 days. 2[address] Do not drive, drink alcohol, operate machinery, make critical decisions, or do activities that require coordination or balance for 24 hours. 3. Because air was put into your colon during the procedure, expelling air from your rectum (passing gas or farting) is normal. 4. You may not have a bowel movement for 1-3 days because of the colonoscopy prep. This is normal. 5. Go directly to the emergency room if you notice any of the following: Develop chills (warm to touch), or if you have a thermometer and your temperature is above 101 Difficulty breathing or difficultly swallowing Persistent vomiting Severe abdominal pain, other than gas cramps Severe chest pain Black, tarry stools Any bleeding ? exceeding one tablespoon 6. Call your physician if the site where your intravenous was started becomes red, swollen, painful, and warm to touch. 7. Your physician has reviewed your pre-procedure medications. Please continue to take those medications as previously ordered. You will be given specific information/education regarding any changes to your medications before leaving. Stand Alone Forms: Anesthesia Discharge InstAxel Silva (DSU) Activity:: Activity as Tolerated Diet:: As Tolerated DS: Diagnosis Discharge Diagnosis (1) Encounter for screening colonoscopy: Status: Acute Asessment and Plan: Follow-up on polypectomy results
--- NOTE | 2024-07-06 18:14 | COLE_ITS ---
Date of service: 07/07/24 Time of Service: 08:52 Colonoscopy Report Date of procedure: 07/07/24 Pre-op diagnosis general: screening colonoscopy Post-op diagnosis procedure note: other (Rectal polyp, diverticulosis) Procedure: colonoscopy with polypectomy Surgeon: Dk Gloria Anesthesia Type: General:No Airway Estimated blood loss (mL): 5 Pathology: other (0.25 cm flat rectal polyp) Complications: None Disposition: same day Indications: Josiane is a 64 year old woman with a family history of colon cancer who needs her next screening colonoscopy Prep: Miralax/Dulcolax Procedure Start Time: 08:21 Procedure End Time: 08:42 Retraction Time: 8 Findings: 0.25 cm flat rectal polyp, diverticulosis Procedure Description: After the induction of anesthesia, and with the patient in left lateral decubitus position, I began by performing an external anorectal exam.? Perineum and skin were normal, as was the anal verge.? There was no evidence of external hemorrhoids.? Next, I performed a digital rectal exam.? I did not appreciate any abnormal findings.? Next, I advanced a colonoscope into the rectal vault.? I performed retroflexion.? This appeared normal.? Using insufflation, I then advanced the colonoscope beyond the rectal folds and into the sigmoid colon before advancing towards the cecum.? There is extensive sigmoid diverticulosis that extends into the descending colon..? The scope was noted to be in the cecum by identification of the ileocecal valve and appendiceal orifice.? I then began withdrawing the colonoscope using repeated irrigation as necessary for full evaluation of the colonic mucosa. ?Once the scope was withdrawn to the level of the rectum, great care was taken to examine portions of the rectal folds.? In the upper portion of the rectal vault was a 0.25 cm flat polyp. This was removed with cold forcep polypectomy. There was minimal bleeding. Finally, the scope was withdrawn and the patient was brought to the same-day surgery recovery unit as the anesthetic wore off. ?The findings and instructions were shared with the patient prior to discharge. Barton Bowel Prep Barton Bowel Prep Right Colon: 3 Left Colon: 2 Transverse Colon: 3 Total Score: 8
[2024-07-07 07:13] VITALS: BP 152/95; PULSE 85; RESP 16; TEMP 36.2; O2SAT 97
[2024-07-07] MEDS: Lactated Ringers 1,000 ML 80 ML IV (07:31)
--- NOTE | 2024-07-07 07:31 | W.ANESPRE ---
General Info Date of Service Date Performed: 07/07/24 Height: 5 ft 1 in Weight: 61.2 kg Body Mass Index (BMI): 25.4 Surgical Procedure: Operation Date: 07/07/24 08:20 Proposed Procedure Side Surgeon hope Gloria MD Meds Allergies and Home Medications Allergies Allergy/AdvReac Type Severity Reaction Status Date / Time aspirin Allergy Severe Anaphylaxsi Verified 07/07/24 07:28 s codeine Allergy Severe Anaphylaxsi Verified 07/07/24 07:28 s meperidine HCl (From Demerol) Allergy Severe Anaphylaxsi Verified 07/07/24 07:28 s morphine Allergy Severe Anaphylaxsi Verified 07/07/24 07:28 s adhesive Allergy Intermediate Skin Rash Verified 07/07/24 07:28 azithromycin Allergy Intermediate swelling,hi Verified 07/07/24 07:28 ves latex Allergy Intermediate rash, Verified 07/07/24 07:28 hives, swelling rofecoxib (From Vioxx) Allergy Unknown Other (See Verified 07/07/24 07:28 Comment) acetaminophen (From Percocet) AdvReac Intermediate messes Verified 07/07/24 07:28 with my liver oxycodone HCl (From Percocet) AdvReac Intermediate knocked Verified 07/07/24 07:28 me out for 2 days lamotrigine (From Lamictal) AdvReac Unknown Nausea Verified 07/07/24 07:28 zomax Allergy Unknown unknown Uncoded 07/07/24 07:28 Home Medication ?Medication ?Instructions ?Recorded duloxetine 60 mg capsule,delayed 60 mg PO BID #180 tab-caps 09/27/21 release (Cymbalta) mupirocin 2 % topical ointment See Rx Instructions .Route 11/15/22 .COMPLEX #22 grams cyclobenzaprine 10 mg tablet See Rx Instructions .Route 10/02/23 .COMPLEX #90 tabs omeprazole 40 mg capsule,delayed See Rx Instructions .Route 10/02/23 release .COMPLEX #90 caps potassium citrate 10 mEq (1,080 10 meq PO TID #270 tabs 10/02/23 mg) tablet,extended release ascorbic acid (vitamin C) 1,000 mg 1,000 mg PO DAILY #90 tabs 10/15/23 tablet cholecalciferol (vitamin D3) 25 2,000 unit PO DAILY #180 tabs 10/15/23 mcg (1,000 unit) tablet cyanocobalamin (vitamin B-12) 1,000 mcg PO DAILY #90 tabs 10/15/23 1,000 mcg tablet (Vitamin B-12) omega 6-viz-auy-fish oil 300 1 cap PO DAILY #90 caps 10/15/23 mg-1,000 mg capsule pyridoxine (vitamin B6) 100 mg See Rx Instructions .Route 10/15/23 tablet .COMPLEX #90 tabs thiamine mononitrate (vit B1) 100 100 mg PO DAILY #90 tabs 10/15/23 mg tablet lovastatin 40 mg tablet See Rx Instructions .Route 01/01/24 .COMPLEX #180 tabs prazosin 2 mg capsule 4 mg (2 x 2 mg) PO QHS #90 caps 01/01/24 diphenhydramine HCl 25 mg tablet 25 mg PO BID #180 tabs 04/02/24 (Benadryl Allergy) semaglutide 1 mg/dose (4 mg/3 mL) 1 mg (0.75 mL) subcut QWEEK #3 mL 04/02/24 subcutaneous pen injector varenicline tartrate 1 mg tablet 1 mg PO BID #60 tabs 04/02/24 (Chantix Continuing Month Box) Current Visit Medications: Current Medications Generic Name Dose Route Start Last Admin Trade Name Markyq PRN Reason Stop Dose Admin Ringer's Solution 1,000 mls @ 80 mls/hr 07/07/24 07:25 07/07/24 07:31 IV 08/06/24 07:24 80 mls/hr INFUSION FRANCISCO Administration IV Miscellaneous Supplies 1 each 07/07/24 06:00 Iv Access IV 08/03/24 23:59 DIRECTED FRANCISCO Ondansetron HCl 4 mg 07/06/24 18:15 Ondansetron 4 Mg/2 Ml Vial IVP 08/05/24 18:14 Q4H PRN PRN Nausea / Vomiting Sodium Chloride 0 ml 07/07/24 06:00 Normal Saline Flush 10 Ml Syr IV 08/03/24 23:59 PRN PRN Sodium Chloride 0 ml 07/07/24 06:00 Normal Saline 10 Ml Vial IJ 08/03/24 23:59 DIRECTED PRN Sterile Water 0 ml 07/07/24 06:00 Water,Injection,Sterile 10 Ml Vial IJ 08/03/24 23:59 DIRECTED PRN [facility] Active Problems Active Problems: Problem Status Onset Code Encounter for screening colonoscopy Acute Z12.11 Cellulitis of left knee Acute 11/23/21 L03.116 Post-traumatic osteoarthritis of left knee Acute M17.32 Diabetes type 2, controlled Acute E11.9 Pain of right sacroiliac joint Acute M53.3 Right hip pain Acute M25.551 Osteoarthritis of knees, bilateral Acute M17.0 PTSD (post-traumatic stress disorder) Acute F43.10 MDD (major depressive disorder), recurrent episode, severe Acute F33.2 Tobacco abuse Acute Z72.0 Restless leg syndrome Acute 07/22/15 G25.81 Hypertension Acute 08/29/17 I10 Hyperlipidemia Acute 05/20/14 E78.5 Fibromyalgia Acute 05/20/14 M79.7 Diverticulitis of intestine without perforation or abscess without bleeding Acute 11/04/15 K57.92 Medical History Medical History Calcium urolithiasis 12/03/[address] [facility] Tinnitus (07/28/13) Syncope and collapse (01/03/18) Neoplasm of skin (07/28/13) Adjustment disorder with depressed mood (03/02/16) Abnormal auditory perception (07/28/13) IBS (irritable bowel syndrome) Hypertension GERD (gastroesophageal reflux disease) Prediabetes Chronic pain of both knees Tobacco use disorder Osteopenia DJD (degenerative joint disease) Renal calculi Hypercholesterolemia Migraine Fibromyalgia Chronic pain Palpitations Chronic, continuous use of opioids Sleep apnea Diverticulosis Depression with anxiety 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 Surgical History Surgical History History of total left knee replacement (TKR) (~11/2021) LEFT [facility] Status post laser lithotripsy of ureteral calculus (11/28/18) [facility] right elbow nerve decompression Open Carpal Tunnel release right and left Hysterectomy, Laproscopic EGD - MAC (08/28/17) Colonoscopy - IV Sedation Arthroscopy, Shoulder left shoulder Arthroplasty of knee left Tobacco Smoking/Tobacco Use Status: Current-Occasional Tobacco Type: cigarettes Smoking packs per day: 1 Smoking cigarettes per day: 20.0 Alcohol Alcohol Intake: never Substance Use Substance use: Never Substance use type: does not use and other Details: has medical marijuana card, uses CBD Details: no tobacco in last 24 hours. Vital Signs and Lab Results Vital Signs Most Recent Vital Signs in EMR: Most Recent Vital Signs Temp Pulse Resp BP Pulse Ox 36.2 C L 85 16 152/95 H 97 07/07/24 07:13 07/07/24 07:13 07/07/24 07:13 07/07/24 07:13 07/07/24 07:13 Lab Results Blood Type / Crossmatch: No Data to Display Complete Blood Count: No Data to Display Complete Metabolic Panel: Sodium 142 mmol/L (136-145) 07/03/24 09:10 Potassium 3.9 mmol/L (3.5-5.1) 07/03/24 09:10 Chloride 104 mmol/L (98-107) 07/03/24 09:10 Carbon Dioxide 27.7 mmol/L (21.0-32.0) 07/03/24 09:10 BUN 17 mg/dL (7-18) 07/03/24 09:10 Creatinine 1.1 mg/dL (0.55-1.02) H 07/03/24 09:10 Est GFR (CKD-EPI 2020) 56.11 (mL/min/1.73m2) 07/03/24 09:10 Calcium 9.8 mg/dL (8.5-10.1) 07/03/24 09:10 Glucose 111 mg/dL (74-106) H 07/03/24 09:10 Liver Function Panel: No Data to Display Coagulation Panel: No Data to Display Cardiac Panel: No Data to Display Arterial Blood Gas: No Data to Display Venous Blood Gas: No Data to Display Pancreas Panel: No Data to Display Thyroid Panel: No Data to Display Infectious Disease: No Data to Display Blood Cultures: No Data to Display Toxicology Panel: No Data to Display Imaging and Studies Imaging and Studies Study information below may be from another EMR and interpreted by another provider. Please see original notes in EMR for more complete details. EKG Summary: 08/30:Conclusion Sinus rhythm...normal P axis, V-rate 50- 99 Low voltage, precordial leads...precordial leads <1.0mV Otherwise normal Stress Test Summary: 01/2018:Impressions: - Study suggests small myocardial ischemia, in the territory of the right coronary or left anterior descending arteries. - Low risk of cardiac events. Summary: 1. Myocardial perfusion imaging: There is a small sized, mildly intense, fully reversible defect involving the apical inferior and apical wall(s). This suggests small ischemia in the distribution of right coronary or left anterior descending artery. 2. The calculated left ventricular ejection fraction after stress: 70%. LV global systolic function is normal. No left ventricular regional motion abnormality. 3. Stress ECG conclusions: The stress ECG is negative. Recommendations: Medical management and risk factor modification is recommended. Echocardiogram Summary: Date of study: 01/21/2018 Transthoracic Echocardiography M-mode, complete 2D, complete spectral Doppler, and color Doppler *STUDY CONCLUSIONS* Summary: 1. Left ventricle: Systolic function was hyperdynamic. The estimated ejection fraction was 65-70%. Diastolic parameters were normal. There was no evidence of elevated ventricular filling pressure by Doppler parameters. 2. Mitral valve: There was mild regurgitation. 3. Right ventricle: The cavity size was normal. Wall thickness was normal. Systolic function was normal. 4. Atrial septum: No defect or patent foramen ovale was identified. 5. Pulmonary arteries: Pulmonary systolic pressure was in the range of 20mm Hg to 30mm Hg. 6. Inferior vena cava: The vessel was patent and normal in size. The respirophasic diameter changes were in the normal range (greater than or equal to 50%), consistent with normal central venous pressure. Anesthesia Assessment and Plan Anesthesia History Personal History: No History of Anesthesia Complications Family History: No Family History of Anesthesia Complications Exercise Tolerance Exercise Tolerance: Metabolic Equivalents>4 Pertinent Negatives Pertinent Negatives: No Symptoms of GERD Cardiac & Pulmonary Exam Cardiac Exam: Normal S1/S2 Heart Sounds Pulmonary Exam: Clear Bilateral Breath Sounds Implantable Cardiac Device Does patient have a Pacemaker or an ICD?: No Airway Exam Known Difficult Airway: No Mallampati Class: 1 Mouth Opening: Normal (> 3cm) Thyromental Distance: Less than 3 cm Neck Range of Motion: Full ROM Neck Circumference: Normal Teeth Condition: Removable Dentures/Plates Upper ASA Classification ASA Score: ASA 3 Emergency Case?: No NPO Status NPO Status: NPO Clears >2 hours, Solids >8 hours Anesthesia Plan Resuscitation Status: Full Code Anesthesia Technique: General Anesthesia Airway Planned: Natural Airway Monitors Used: Standard Monitors
[2024-07-07 07:35] VITALS: BMI 25.4
--- NOTE | 2024-07-07 08:41 | BOWEL_PTH ---
PATIENT: Josiane Novak LOC: [facility] U#:[id number] AGE/SX: 64/F ROOM: RE07/07/[address]: Dk Gloria MD : 1960 BED: DIS: 07/07/2024 SPEC #: [id number] RECD: 07/07/24 12:16 STATUS: HAIDER RE #: [id number] GERALD: 07/07/24 08:[address]: Dk Gloria DEPT: Surgical Specimen RECD BY: Jayde Meraz ENTERED: 07/07/24 12:17 SP TYPE: Bowel OTHR DR: Heather Wolfe APRN Tissues: 1 - BIOPSY BOWEL Procedures: GROSS AND MICRO LEVEL 4 Comments: [id number]
[2024-07-07 08:48] VITALS: BP 133/76; PULSE 65; RESP 16; TEMP 36.1; O2SAT 100
--- NOTE | 2024-07-07 09:11 | W.ANESPOSTOP ---
Postoperative Evaluation Date, Time and Location Date Performed: 07/07/24 Time Performed: 09:11 Patient Location: Day Surgery Unit Vital Signs Most Recent Imported Vital Signs: Most Recent Vital Signs Temp Pulse Resp BP Pulse Ox 36.1 C L 65 16 133/76 100 07/07/24 08:48 07/07/24 08:48 07/07/24 08:48 07/07/24 08:48 07/07/24 08:48 Pain Score Most Recent Pain Score: Most Recent Pain Score Pain Level 0 07/07/24 08:48 Assessment Mental Status: Awake (Alert & Oriented to Patient Baseline) Airway and Respiratory Function: Patent airway with normal (patient baseline) respiratory exam Cardiovascular Function: Hemodynamically Stable Hydration Status: Adequately Hydrated Nausea & Vomiting: No Nausea or Vomiting Pain: Pt. Denies Any Pain Peripheral Nerve Block: Patient did not receive a nerve block
[2024-07-07 09:15] VITALS: BP 154/77; PULSE 60; RESP 16; TEMP 36.3; O2SAT 100
== END 2024-07-07 09:30 | disposition home or self-care (01) ==
LOC: SUR 07:11
PROVIDERS: PCP Nurse Practitioner; Visit Provider Surgery
PROC: 0DJD8ZZ Inspection of Lower Intestinal Tract, Via Natural or Artificial Opening Endoscopic (ICD-10-PCS; CPT 45378; principal; 2024-07-07 08:15)
DX: Z12.11 Encounter for screening for malignant neoplasm of colon (principal); E11.9 Type 2 diabetes mellitus without complications; I10 Essential (primary) hypertension; K62.1 Rectal polyp; K57.30 Diverticulosis of large intestine without perforation or abscess without bleeding
CPT/HCPCS: 45380; 88305; J2003; J2704

== ENCOUNTER 2024-11-07 00:19 | Outpatient (CLI) | payer MEDICARE, MEDICAID, SELFPAY ==
--- NOTE | 2024-11-07 07:15 | DI.DEXA_ITS ---
Exam(s) XR DEXA BONE DENSITY W/WO ROMMEL EXAM: XR DEXA BONE DENSITY W/WO ROMMEL CLINICAL HISTORY: screening for osteoporosis in asymptomatic postmenopausal state TECHNIQUE: Routine DEXA evaluation of the lumbar spine, hip, or forearm. COMPARISON: Prior DEXA exam December 2012 FINDINGS: Performed on a [employer] unit. Lateral image: No compression fracture evident. Lumbar Spine total T-score: 0.4 which is in normal range. Prior reading in 2012 was 1.2 Hip total T-score:-2.0 which is osteopenia range. Prior reading in 2013 was 0.1. Independent reading at the level of the femoral neck yields T-score of -1.8 Forearm total T-score: -1.5 which is osteopenia range IMPRESSION: Bone mineral density measures in the osteopenia range. Fracture risk is moderate. Note: Any spine fracture indicates 5x risk for subsequent spine fracture and 2x risk for subsequent h ip fracture. World Health Organization criteria for BMD interpretation classify patients: Normal...... T- Score at or above -1.0 Osteopenic... T- Score between -1.0 and -2.5 Osteoporosis... T-Score at or below -2.5
== END 2024-11-07 00:39 ==
PROVIDERS: PCP Nurse Practitioner Family; Visit Provider Nurse Practitioner
DX: Z78.0 Asymptomatic menopausal state (principal); Z13.820 Encounter for screening for osteoporosis; M85.88 Other specified disorders of bone density and structure, other site
CPT/HCPCS: 77080

== ENCOUNTER 2024-11-07 14:51 | Outpatient (CLI) | payer MEDICARE, MEDICAID, SELFPAY ==
[2024-11-07 16:47] LABS: Calculated LDL 93 mg/dL (<100); Cholesterol 188 mg/dL (<200); HDL Cholesterol 62 mg/dL (>or=50); Triglyceride 169 mg/dL (<150)
== END 2024-11-07 14:52 | disposition home or self-care (01) ==
LOC: LBO 14:51
PROVIDERS: PCP Nurse Practitioner Family; Visit Provider Nurse Practitioner Family
DX: E78.5 Hyperlipidemia, unspecified (principal)
CPT/HCPCS: 36415; 77080; 80061

== ENCOUNTER 2025-02-18 02:51 | Outpatient (CLI) | payer MEDICARE, MEDICAID, SELFPAY ==
--- NOTE | 2025-02-18 06:30 | DI.MAMMO_ITS ---
Exam(s) MAMMO SCREENING EXAM: MAMMO SCREENING CLINICAL HISTORY: screening,Z12.39 TECHNIQUE: Mammograms were interpreted according to the usual protocol including computer analysis with CAD system, tomosynthesis and C-view imaging. COMPARISON: 2018 through 2023 FINDINGS: The breasts are composed of mainly fatty density , Breast Density category A. No suspicious masses or suspicious microcalcifications are seen. No skin thickening or abnormal axillary lymph nodes are seen. There has been no significant change from prior exams. IMPRESSION: BI-RADS Category 1, Negative mammogram Yearly screening mammography is recommended. Breast Density- Category A - The breast are almost entirely fatty. Breast density Category C or D implies that the patient has dense breast tissue. Dense breast tissue can make it harder to find cancer on a mammogram. Dense breast tissue is also associated with an increased risk of breast cancer. This information about the result of the mammogram report was provided to the patient to raise their awareness. Use this report when you speak with the patient about their risks for breast cancer, which includes their family history. At that time, you may recommend additional screening tests (Ultrasound or MRI) as these tests may add significant information. A negative radiographic report should not delay biopsy if a dominant or clinically suspicious mass is present. Up to ten percent of cancers are not identified on mammography. A negative report may reinforce clinical impression. Adenosis and dense breasts may obscure an underlying neoplasm. False positive reports average 6 to 10%. Patient will receive a letter notifying them of these results.
== END 2025-02-18 03:11 ==
LOC: DI 02:51
PROVIDERS: PCP Nurse Practitioner Family; Visit Provider Nurse Practitioner Family
DX: Z12.31 Encounter for screening mammogram for malignant neoplasm of breast (principal); R92.313 Mammographic fatty tissue density, bilateral breasts
CPT/HCPCS: 77063; 77067